=== PATIENT | female | born 1995 | race Caucasian/White ===

== ENCOUNTER 2019-02-20 21:23 | Emergency (ER) | payer BC ==
[~2019-02-20] VITALS: Ht 167.6 cm; Wt 70.5 kg
[2019-02-20 21:28] VITALS: BP 137/76; TEMP 99.2
[2019-02-20 22:01] LABS: BASO % 0.1 % (0.0-2.0); HEMATOCRIT 40.6 % (37.0-47.0); HEMOGLOBIN 13.7 g/dl (12.5-16.0); LYMPH # 0.8 (1.2-3.4); LYMPH % 5.3 % (20.0-51.0); MEAN CELL VOLUME 89 fl (80.0-100.0); MEAN CORPUSCULAR HEMOGLOBIN 30 pg (27.0-31.0); MEAN CORPUSCULAR HGB CONC 34 g/dl (33.0-37.0); MEAN PLATELET VOLUME 11.2 fl (7.4-10.4); MONO # 0.7 (0.1-0.6); MONO % 4.2 % (1.7-9.3); PLATELET COUNT 288 K/mm3 (130-400); RED BLOOD COUNT 4.58 M/mm3 (4.10-5.30); REDCELL DISTRIBUTION WIDTH-CV 12.5 % (11.5-14.5)
[2019-02-20 22:18] LABS: ALANINE AMINOTRANSFERASE < 6 U/L (9-52); ALBUMIN 4.8 gm/dL (3.5-5.0); ALKALINE PHOSPHATASE 64 U/L (50-136); ANION GAP 12 mmol/L (7-16); AST,SGOT 32 U/L (15-37); BILIRUBIN,TOTAL 0.3 mg/dL (0.0-1.0); BLOOD UREA NITROGEN 8 mg/dL (7-17); CALCIUM 9.6 mg/dL (8.4-10.2); CARBON DIOXIDE 23 mmol/L (22-30); CHLORIDE 106 mmol/L (98-107); CREATININE, serum 0.65 (0.52-1.25); GLUCOSE 153 mg/dL (74-106); POTASSIUM 3.7 mmol/L (3.4-5.0); SODIUM 141 mmol/L (137-145); TOTAL PROTEIN 8.1 gm/dL (6.4-8.2)
[2019-02-20] MEDS ORDERED: ZITHROMAX Z PA250 MG PO (22:54)
[2019-02-20 23:22] VITALS: PULSE 92
== END 2019-02-20 23:22 | disposition home or self-care (01) ==
LOC: COL.ER 21:23
PROVIDERS: Physician Assistant
DX: J20.9 Acute bronchitis, unspecified (principal)

== ENCOUNTER 2019-04-12 01:04 | Emergency (ER) | payer BC ==
[~2019-04-12] VITALS: Ht 165.1 cm; Wt 70.5 kg
[~2019-04-12 01:04] MED LIST: ZITHROMAX Z PA250 MG PO
[2019-04-12 01:11] VITALS: TEMP 97.6
[2019-04-12 02:02] LABS: BASO % 0.5 % (0.0-2.0); EOS # 0.3 (0.0-0.7); EOS % 3.8 % (0-4.0); GRAN # 3.5 (1.4-6.5); GRAN % 46.3 % (42.2-75.2); HEMATOCRIT 39.7 % (37.0-47.0); HEMOGLOBIN 13.5 g/dl (12.5-16.0); LYMPH # 3.2 (1.2-3.4); LYMPH % 42.3 % (20.0-51.0); MEAN CELL VOLUME 87 fl (80.0-100.0); MEAN CORPUSCULAR HEMOGLOBIN 30 pg (27.0-31.0); MEAN CORPUSCULAR HGB CONC 34 g/dl (33.0-37.0); MONO # 0.5 (0.1-0.6); MONO % 6.7 % (1.7-9.3); PLATELET COUNT 221 K/mm3 (130-400); RED BLOOD COUNT 4.57 M/mm3 (4.10-5.30); REDCELL DISTRIBUTION WIDTH-CV 12.2 % (11.5-14.5)
[2019-04-12 02:13] LABS: POTASSIUM 3.7 mmol/L (3.4-5.0)
[2019-04-12 02:14] LABS: ALBUMIN 4.3 gm/dL (3.5-5.0); BILIRUBIN,TOTAL 0.3 mg/dL (0.0-1.0); CALCIUM 9.3 mg/dL (8.4-10.2); CREATININE, serum 0.77 (0.52-1.25); MAGNESIUM 2.1 mg/dL (1.6-2.3); TOTAL PROTEIN 7.4 gm/dL (6.4-8.2)
[2019-04-12 03:42] VITALS: BP 114/75; PULSE 66
== END 2019-04-12 03:41 | disposition home or self-care (01) ==
LOC: COL.ER 01:04
PROVIDERS: Emergency Medicine
DX: R00.2 Palpitations (principal)

== ENCOUNTER 2022-07-14 15:16 | Inpatient (IN) | payer BC ==
[~2022-07-14] VITALS: Ht 167.6 cm; Wt 85.0 kg
[2022-07-16] VITALS (67 sets, daily range): BP systolic 92–145; BP diastolic 50–91; PULSE 60–117; TEMP 97.3–98.2
--- NOTE | 2022-07-16 | NUR ---
G1L0. 40-3. Ambulatory to LDR5 with spouse. Clean gown on. EFM and TOCO explained and applied. Pt denies contractions, leaking of fluids or vaginal bleeding. Reports good movement. 0013: Pt ambulatory and moved to LDR 6. Plan of care explained for the night and cytotec induction. Questions answered by this RN. 0042: IV started and labs obtained via IV site. LR bolus infusing without difficutly. 0112: SVE /-3 and cytotec placed by Arvind MAC. Pt repositioned to left side. Plan of care explained and questions answered.
[2022-07-16] MEDS ORDERED: ZYRTEC ALLERGY10 MG PO (00:59)
[2022-07-16] MEDS ORDERED: PRENATAL TABLET PO (01:00)
[2022-07-16] MEDS ORDERED: PRILOTC PO (02:23)
[2022-07-16 02:26] LABS: HEMOGLOBIN 11.4 g/dl (12.5-16.0); MEAN CELL VOLUME 87 fl (80.0-100.0); MEAN CORPUSCULAR HEMOGLOBIN 28 pg (27-31); MEAN CORPUSCULAR HGB CONC 32 g/dl (33.0-37.0); MEAN PLATELET VOLUME 13.6 fl (7.4-10.4); PLATELET COUNT 155 K/mm3 (130-400); RED BLOOD COUNT 4.09 M/mm3 (4.10-5.30); REDCELL DISTRIBUTION WIDTH-CV 14.4 % (11.5-14.5)
[2022-07-16 02:28] LABS: HEMATOCRIT 35.7 % (37.0-47.0)
[2022-07-16 02:59] LABS: BAND 5 % (0-10); LYMPHOCYTE 25 % (20.0-51.0); METAMYELOCYTE 1 % (0-0); NEUTROPHILS 63 % (42.0-75.2)
[2022-07-16 03:00] LABS: ANISOCYTOSIS 1+; HYPOCHROMIA 2+; PLATELET ESTIMATE NORMAL (NORMAL)
--- NOTE | 2022-07-16 06:45 | NUR ---
Assumed care of patient. Rests in bed with eyes closed, resperations even and unlabored.
--- NOTE | 2022-07-16 08:15 | NUR ---
Rests in bed, alert. Ambulates to the bathroom. Back to bed. Eats some toast. Takes a shower after eating.
--- NOTE | 2022-07-16 09:00 | NUR ---
Rests in bed, alert. States feels better after shower. Pitocin 2 million units iv started as ordered and per protocol.
--- NOTE | 2022-07-16 09:30 | NUR ---
Rests in bed, alert, crying. States am I able to have an epidural. Says these contractions are coming really close together. Let her know that we would call Dr. Aiken.
--- NOTE | 2022-07-16 09:50 | NUR ---
Explained to patient about effects that stadol could cause. Patient states okay. Stadol 1 mg given as ordered by Dr. Aiken.
--- NOTE | 2022-07-16 10:00 | NUR ---
States feeling a little better. Positioned to right side with peanut ball.
--- NOTE | 2022-07-16 12:00 | NUR ---
Continues to be on birthing ball. Breathes through contractions.
--- NOTE | 2022-07-16 12:30 | NUR ---
Ambulates to the bathroom and back. Positions in hand knees. States that feels better. Breathes through contractions.
--- NOTE | 2022-07-16 13:06 | NUR ---
Called anethesia, let her know that patient would like epidural.
--- NOTE | 2022-07-16 13:35 | NUR ---
Anesthesia here, sits up for epidural. heart tones down in the nintys for eighty seconds then back up to 120s. 1345 Catheter placed by anesthesia. 1346 Test dose given by anesthesia. Lies down after.
--- NOTE | 2022-07-16 14:45 | NUR ---
Dr. Aiken here, arom done, large amount of meconium fluid noted. heart tones down in the nintys, then back up to 120s. 1458 Dr. Aiken here, repositions patient to right side.
--- NOTE | 2022-07-16 15:00 | NUR ---
Continues to have variable decels down in the nintys for sixty seconds then back up to 120s. Pitocin off per Dr. Aiken. 1510 States having some shortness of breath. O2 is already on for the decels. Anesthesia notified of patient having shortness of breath and if she could come evaluate. Anesthesia states will right there. 1514 Anethesia here, visits with patient. States going to turn pump off for awhile. Oxygen saturation at 100 percent.
--- NOTE | 2022-07-16 15:28 | NUR ---
Patient placed in knee chest position. Continues to have decels down in the nintys for fifty seconds.
--- NOTE | 2022-07-16 15:30 | NUR ---
1542 Positioned left later in stirup by Dr. Aiken and Cande Kamara3 Having emisis.
--- NOTE | 2022-07-16 15:45 | NUR ---
1548 Zofran 4mg iv given by Cande moreno
--- NOTE | 2022-07-16 17:00 | NUR ---
Rests in bed, alert. Vag check done, dilated 6-7 with caput.
--- NOTE | 2022-07-16 17:15 | NUR ---
Rests in bed, alert. Pitocin 2 shayy units iv started as ordered.
[2022-07-17] VITALS (8 sets, daily range): BP systolic 95–117; BP diastolic 46–68; PULSE 66–96; TEMP 97.6–98.4
--- NOTE | 2022-07-17 09:16 | NUR ---
Initial visit attempt: Family resting, Quality Control Engineer left card offering congratulations and God's blessings for the of their son and information regarding the availablility of [facility] at [facility].
[2022-07-18] MEDS ORDERED: IBU800 M1 PO (07:53)
[2022-07-18 08:25] VITALS: BP 103/55; PULSE 58; TEMP 98.1
== END 2022-07-18 14:35 | disposition home or self-care (01) | DRG 807 ==
LOC: OB → LDR 07-15 23:45 → OB 07-15 23:45 → LDR 07-16 01:37 → OB 07-17 00:33
PROVIDERS: ADMIT Student in an Organized Health Care Education/Training Program
PROC: 10E0XZZ Delivery of Products of Conception, External Approach (ICD-10-PCS; principal; 2022-07-16)
PROC: 10907ZC Drainage of Amniotic Fluid, Therapeutic from Products of Conception, Via Natural or Artificial Opening (ICD-10-PCS; 2022-07-16)
PROC: 0KQM0ZZ Repair Perineum Muscle, Open Approach (ICD-10-PCS; 2022-07-16)
PROC: 3E0P7VZ Introduction of Hormone into Female Reproductive, Via Natural or Artificial Opening (ICD-10-PCS; 2022-07-16)
PROC: 3E033VJ Introduction of Other Hormone into Peripheral Vein, Percutaneous Approach (ICD-10-PCS; 2022-07-16)
PROC: 0W8NXZZ Division of Female Perineum, External Approach (ICD-10-PCS; 2022-07-16)
PROC: 0UQMXZZ Repair Vulva, External Approach (ICD-10-PCS; 2022-07-16)
PROC: 0UQGXZZ Repair Vagina, External Approach (ICD-10-PCS; 2022-07-16)
DX: O48.0 Post-term pregnancy (principal); Z37.0 Single live birth; Z3A.40 40 weeks gestation of pregnancy; O99.02 Anemia complicating childbirth; D64.9 Anemia, unspecified; M54.30 Sciatica, unspecified side; O76 Abnormality in fetal heart rate and rhythm complicating labor and delivery; J45.909 Unspecified asthma, uncomplicated; O99.52 Diseases of the respiratory system complicating childbirth; O99.892 Other specified diseases and conditions complicating childbirth; O77.0 Labor and delivery complicated by meconium in amniotic fluid; O71.82 Other specified trauma to perineum and vulva; O70.1 Second degree perineal laceration during delivery; O69.81X0 Labor and delivery complicated by cord around neck, without compression, not applicable or unspecified
CPT/HCPCS: J0595; J2405; J2590; J7120